=== PATIENT | female | born 2005 | race Caucasian/White ===

== ENCOUNTER 2024-01-01 10:30 | Outpatient (OUT) | payer OTHER, SELFPAY ==
[2024-01-01 11:05] LABS: Basophils Absolute Auto 0.1 10^3/uL (0.0-0.1); Basophils Percent Auto 0.8 % (0.2-2.0); Eosinophils Absolute Auto 0.2 10^3/uL (0.0-0.7); Eosinophils Percent Auto 3.2 % (0.9-7.0); Hematocrit 40.9 % (36.0-48.0); Hemoglobin 13.6 g/dL (12.0-16.0); Immature Granulocytes Abs Auto 0.01 10^3/uL (0.00-0.03); Immature Granulocytes Pct Auto 0.2 % (0.0-0.5); Lymphocytes Absolute Auto 2.7 10^3/uL (1.2-3.8); Lymphocytes Percent Auto 43.6 % (20.5-60.0); Mean Corpuscular HGB Conc 33.3 g/dL (29.9-35.2); Mean Corpuscular Hemoglobin 28.6 pg (26.7-34.0); Mean Corpuscular Volume 86.1 fL (81.0-99.0); Monocytes Absolute Auto 0.7 10^3/uL (0.3-0.8); Monocytes Percent Auto 11.2 % (1.7-12.0); Neutrophils Absolute Auto 2.6 10^3/uL (1.4-6.5); Platelet Count 200 10^3/uL (150-450); Red Blood Count 4.75 10^6/uL (4.20-5.40); Red Cell Distribution Width 12.8 % (11.0-15.0); White Blood Count 6.3 10^3/uL (4.0-11.0)
[2024-01-01 11:22] LABS: Bilirubin Urine NEGATIVE (NEGATIVE); Blood Urine NEGATIVE (NEGATIVE); Clarity Urine CLEAR (CLEAR); Color Urine LT. YELLOW (YELLOW); Glucose Urine UA NEGATIVE (NEGATIVE); Ketones Urine NEGATIVE (NEGATIVE); Leukocyte Esterase Urine NEGATIVE (NEGATIVE); Nitrite Urine NEGATIVE (NEGATIVE); Protein Urine NEGATIVE (NEG/TRACE); Specific Gravity Urine 1.015 (1.005-1.025); Urobilinogen Urine 0.2 EU/dL (0.2-1.0)
[2024-01-01 12:09] LABS: Amphetamine Screen Urine NEGATIVE (NEGATIVE); Barbiturates Screen Urine NEGATIVE (NEGATIVE); Benzodiazepines Screen Urine NEGATIVE (NEGATIVE); Buprenorphine Screen Urine NEGATIVE (NEGATIVE); Cannabinoid Screen Urine NEGATIVE (NEGATIVE); Cocaine Screen Urine NEGATIVE (NEGATIVE); Methadone Screen Urine NEGATIVE (NEGATIVE); Methamphetamines Screen Urine NEGATIVE (NEGATIVE); Opiate Screen Urine NEGATIVE (NEGATIVE); Oxycodone Screen Urine NEGATIVE (NEGATIVE); Phencyclidine Screen Urine NEGATIVE (NEGATIVE); Tricyclic Antidepressant Urine NEGATIVE (NEGATIVE)
== END 2024-01-01 10:31 | disposition home or self-care (01) ==
PROVIDERS: PCP Family Medicine; Visit Provider Family Medicine
DX: Z00.00 Encounter for general adult medical examination without abnormal findings (principal)
CPT/HCPCS: 36415; 80307; 81003; 85025; 86762

== ENCOUNTER 2025-02-01 10:44 | Outpatient (OUT) | payer MEDICAID, SELFPAY ==
[2025-02-01 11:41] LABS: Hematocrit 40.9 % (36.0-48.0); Hemoglobin 14.4 g/dL (12.0-16.0); Immature Granulocytes Abs Auto 0.05 10^3/uL (0.00-0.03); Immature Granulocytes Pct Auto 0.5 % (0.0-0.5); Lymphocytes Absolute Auto 1.9 10^3/uL (1.2-3.8); Mean Corpuscular HGB Conc 35.2 g/dL (29.9-35.2); Mean Corpuscular Hemoglobin 30.0 pg (26.7-34.0); Mean Corpuscular Volume 85.2 fL (81.0-99.0); Platelet Count 194 10^3/uL (150-450); Red Blood Count 4.80 10^6/uL (4.20-5.40); White Blood Count 10.4 10^3/uL (4.0-11.0)
[2025-02-01 11:55] LABS: Cannabinoid Screen Urine NEGATIVE (NEGATIVE); Methamphetamines Screen Urine NEGATIVE (NEGATIVE); Tricyclic Antidepressant Urine NEGATIVE (NEGATIVE)
[2025-02-02 08:08] LABS: Rubella Antibodies, IgG 1.17 index (Immune >0.99)
[2025-02-02 12:09] LABS: Rapid Plasma Reagin, Quant Non Reactive titer (NonRea<1:1)
== END 2025-02-01 10:45 | disposition home or self-care (01) ==
PROVIDERS: PCP Family Medicine; Visit Provider Obstetrics & Gynecology
DX: Z34.01 Encounter for supervision of normal first pregnancy, first trimester (principal); N92.6 Irregular menstruation, unspecified
CPT/HCPCS: 36415; 80307; 83036; 85025; 86592; 86762; 86803; 86850; 86900; 86901; 87086; 87340; 87389

== ENCOUNTER 2025-04-14 19:16 | Outpatient (REF) | payer MEDICAID, SELFPAY ==
--- OUTSIDE RECORDS SUMMARY | 2022-08-02 05:00 | XMS_ITS | Continuity of Care Document ---
Author Organization [facility] Address [address] [place] [address] Phone Care Team Providers Care Carriage Operator Name Role Phone Seven Harrison DDS Unavailable Unavail able Allergies, Adverse Reactions, Alerts Substance Reaction Status Criticality No Known Allergies Active No Inform ation Procedures Procedure Date Panoramic Film Limited Oral Eval Nutrit Couns For Control Of [place] Dis Aug Advance Directives Directive Yes / No Effective Date File Name No Information Encounters Encounter Description Practice Location Reason(s) For Visit Diagnoses Date Provider Providers Copied on Encounter [facility], [address] [place], [place], [id number], [place] tel:[phone] Dental Clinic consult (chief complaint) Encounter for screening for dental disorders Hunter Amezcua. [address] [place], [place], [id number], [place]. tel:[phone] Family History Family Member Type Diagnosis Age At Onset No Information Payers Payer name Insurance type Covered alliance party ID Authorteda anthony(s) D Aetna 17 [id number] Social History Type Description Quantity Date Captured Comments Alcohol Use Details Unknown Caffeine Use Details Unknown Tobacco Use Status Current non-smoker Smoking Status Never smoker Non-Smoking Tobacco Use Details : No Details Available : No Details Available Sex Female Sexual Orientation Straight or heterosexual Gender Identity Female Vital Signs Date / Time: Height Weight BMI Pulse Rate Blood Pressure Temperature Respiratory Rate Body Surface Area Head Circumference Head Circ. Percentile Wt./Robbi. Percentile BMI percentile Pulse Ox Inhaled Ox 9:22 AM 82 /min 120/81 mm[Hg] 96.90 F Chief Complaint And Reason For Visit From encounter dated '08/02/2022 09:00'. consult (chief complaint) Reason For Referral [...]
--- OUTSIDE RECORDS SUMMARY | 2025-04-14 13:00 | XMS_ITS | Encounter Summary ---
Author Organization [facility] Address [address] [facility] [place] [address] Care Team Providers Care Cardiovascular Specialist Name Role Phone Unavailable Primary Care Provider Unavailabl e Encounter Details Date Type Department Care Team (Latest Contact Info) Description 04/14/2025 1:00 PM EDT Ancillary Procedure [facility] [address] [place] [address] Low-lying placenta ([facility]) Social History Tobacco Use Types Packs/Day Years Used Date Smoking Tobacco: Never Assessed Estimated Date of Delivery Comme nts Yes 08/05/2025 Based on last me nstrual period of 10/29/2024 Sex and Gender Information Value Date Recorded Sex Assigned at Not on file Legal Sex Female 6:37 PM EDT Gender Identity Not on file Sexual Orientation Not on file documented as of this encounter Plan of Treatment Upcoming Encounters Date Type Department Care Team (Late st Contact Info) Description 05/12/2025 1:30 PM EST Routine [facility] [address] [place] [address] Vanesa Page PA [address] [place], [id number] Pending Results Name Type Priority Associated Diagnoses Date /Time US OB limited 1+ fetuses Imaging Routine Low-lying placenta ([facility]HS-HCC) 04/14/2025 1:29 PM EDT documented as of this encounter Visit Diagnoses Diagnosis Low-lying placenta ([facility]HCC) Hemorrhage from placenta previa, unspecified as to episode of care documented in this encounter
--- OUTSIDE RECORDS SUMMARY | 2025-04-14 13:40 | XMS_ITS | Encounter Summary ---
Author Organization [facility] Address [address] [place] [address] Care Team Providers Care Tar Distillation Supervisor Name Role Phone Unavailable Primary Care Provider Unavailabl e Reason for Visit * Reason Comments Routine Visit Encounter Details Date Type Department Care Team (Late st Contact Info) Description 04/14/2025 1:40 PM EDT Routine [facility] [place] [facility] [address] [id number] Ashok Paredes DO [address] [place] [address] Second trimester ([facility]); 23 weeks gestation of ([facility]); Diabetes mellitus screening Social History Tobacco Use Types Packs/Day Years Used Date Smoking Tobacco: Never Assessed Estimated Date of Delivery Comme nts Yes 08/05/2025 Based on last me nstrual period of 10/29/2024 Sex and Gender Information Value Date Recorded Sex Assigned at Not on file Legal Sex Female 6:37 PM EDT Gender Identity Not on file Sexual Orientation Not on file documented as of this encounter Last Filed Vital Signs Vital Sign Reading Time Taken Comments Blood Pressure 122/70 04/14/2025 1:39 PM EDT Pulse - - Temperature - - Respiratory Rate - - Oxygen Saturation - - Inhaled Oxygen Concentration - - Weight 79.4 kg (175 lb 1.9 oz) 04/14/2025 1:39 P M EDT Height - - Body Mass Index - - documented in this encounter Progress Notes * Aileen Hawkins LPN - 04/14/2025 1:40 PM EDT Reason for Appointment: Patient ID: Justin Uribe is a 20 y.o. female who presents for Routine Visit Patient presents today for Annual Exam., STD Check., and Return OB appointment. MEDICATIONS Current Outpatient Medications Medication Instructions Yeeuioxh-Fvx-La-[id number] ( 1 + IRON PO) 1 tablet, Daily ALLERGIES Allergies[1] PROBLEMS Active Ambulatory Problems Diagnosis Date Noted No Active Ambulatory Problems Resolved Ambulatory Problems Diagnosis Date Noted No Resolved Ambulatory Problems No Additional Past Medical History HISTORY PAST MEDICAL HISTORY SOCIAL HISTORY Medical History[2] Social History Tobacco Use Smoking status: Not on file Smokeless tobacco: Not on file Substance Use Topics Alcohol use: Not on file Drug use: Not on file FAMILY HISTORY Family History[3] SURGICAL HISTORY Surgical History[4] REVIEW OF SYSTEMS Review of Systems: Review of Systems Constitutional: Negative. HENT: Negative. Eyes: Negative. Respiratory: Negative. Cardiovascular: Negative. Gastrointestinal: Negative. Genitourinary: Negative. Musculoskeletal: Negative. Skin: Negative. Neurological: Negative. All other systems reviewed and are negative. Hematological: Negative. Endocrine: Negative. Allergic/Immunologic: Negative. OBJECTIVE Objective: Physical Exam Constitutional: Appearance: Normal appearance. She is well-developed. Genitourinary: Vulva normal. Breasts: Breasts are soft. Right: Normal. Left: Normal. Cardiovascular: Rate and Rhythm: Normal rate and regular rhythm. Pulmonary: Effort: Pulmonary effort is normal. Breath sounds: Normal breath sounds. Abdominal: General: Bowel sounds are normal. There is no distension. Palpations: Abdomen is soft. Tenderness: There is no abdominal tenderness. There is no guarding or rebound. Musculoskeletal: General: No swelling. Normal range of motion. Right lower leg: No edema. Left lower leg: No edema. Neurological: Mental Status: She is alert and oriented to person, place, and time. Skin: General: Skin is warm and dry. Psychiatric: Mood and Affect: Mood normal. Behavior: Behavior normal. Vitals and nursing note reviewed. Exam conducted with a sole leveler present. Vitals: There is no height or weight on file to calculate BMI. BP: 122/70 Patient's last menstrual period was 10/29/2024. ASSESSMENT & PLAN ICD-10-CM 1. Second trimester ([facility]) Z34.92 SURESWAB(R) ADVANCED VAGINITIS PLUS, TMA CHLAMYDIA TRACHOMATIS (GENITO/STI) Neisseria gonorrhea DNA probe, direct Pap Smear CBC and differential 2. 23 weeks gestation of ([facility]) Z3A.23 POCT urinalysis dipstick manually resulted 3. Diabetes mellitus screening Z13.1 CBC Glucose tolerance, 1 hour CBC Glucose tolerance, 1 hour Return OB/Annual Exam: Patient presents today for an annual exam/routine obstetrics appointment. Patient is currently 23w6d . Patient is doing well and states she has no complaints. Pap/cultures was obtained without difficulty and patient was given glucola order to have obtained. Orders Placed This Encounter Procedures CHLAMYDIA TRACHOMATIS (GENITO/STI) Neisseria gonorrhea DNA probe, direct CBC Glucose tolerance, 1 hour CBC and differential POCT urinalysis dipstick manually resulted Follow Up: Patient is to return to our office in 4 weeks for routine OB appointment Documented by Aileen Hawkins LPN on behalf of: Ashok Paredes DO [1] No Known Allergies [2] No past medical history on file. [3] No family history on file. [4] History reviewed. No pertinent surgical history. documented in this encounter Plan of Treatment Upcoming Encounters Date Type Department Care Team (Late st Contact Info) Description 05/12/2025 1:30 PM EST Routine [facility] [address] [place] [address] Vanesa Page PA [address] [place] [address] Scheduled Orders Name Type Priority Associated Diagnoses Order Schedule SURESWAB(R) ADVANCED VAGINITIS PLUS, TMA Pathology and Cytology Routine Second trimester ([facility]) Ordered: 04/14/2025 CHLAMYDIA TRACHOMATIS (GENITO/STI) Lab Routine Second trimester ([facility]) Ordered: 04/14/2025 Neisseria gonorrhea DNA probe, direct Lab Routine Second trimester ([facility]) Ordered: 04/14/2025 Pap Smear Pathology and Cytology Routine Second trimester ([facility]) Ordered: 04/14/2025 CBC Lab Routine Diabetes mellitus screening Expected: 04/14/2025 (Approximate), Expires: 04/14/2026 Glucose tolerance, 1 hour Lab Routine Diabetes mellitus screening Expected: 04/14/2025 (Approximate), Expires: 04/14/2026 CBC and differential Lab Routine Second trimester ([facility]) Ordered: 04/14/2025 documented as of this encounter Procedures Procedure Name Priority Date/Time Associated Diagnosis Comments POCT URINALYSIS DIPSTICK Routine 04/14/2025 1:53 PM EDT 23 weeks gestation of ([facility]) documented in this encounter Results * (ABNORMAL) POCT urinalysis dipstick manually resulted (04/14/2025 1:53 PM EDT) Color, UA Yellow Clarity, UA Clear Glucose, UA Negative Negative - 2000(110) ++++ mg/dL Bilirubin, UA Negative Negative - 4(70) +++ mg/dL Ketones, UA Negative Negative - 160(16) ++++ mg/dL Spec Grav, UA 1.015 1 - 1.03 Blood, UA Negative Negative - 50 Conrado/mcL pH, UA 6.5 5 - 9 Protein, UA Negative Negative - 2000(20) ++++ mg/dL Urobilinogen, UA 2.0 0.2 - 12 mg/dL Leukocytes, UA 3+ Negative - 500+++ Yovanny/mcL Nitrite, UA Negative Negative - Positive Urine 04/14/2025 1:53 PM EDT us Ashok Paredes DO POINT OF CARE TEST ENTER/EDIT OR DERABLES Final Result documented in this encounter Visit Diagnoses Diagnosis Second trimester ([facility]) state, incidental 23 weeks gestation of ([facility]) Diabetes mellitus screening Screening for diabetes mellitus documented in this encounter
--- OUTSIDE RECORDS SUMMARY | 2025-04-14 19:20 | XMS_ITS | Clinical Summary ---
Author Organization [facility] Address [address] [place] [address] Care Team Providers Care Warehouse Shipping Clerk Name Role Phone Unavailable Primary Care Provider Unavailabl e Allergies No known active allergies Medications Ziaqumwy-Eiz-Fw- FA ( 1 + IRON PO) Take 1 tablet by mouth Daily Active Encounters Date Type Department Care Team Description 04/14/2025 1:40 PM EDT Routine [facility] [place] [address] Ashok Paredes DO Second trimester ([facility]); 23 weeks gestation of ([facility]); Diabetes mellitus screening 04/14/2025 1:00 PM EDT Ancillary Procedure BAIRON WRIGHT [facility] [place] [address] Low-lying placenta ([facility]) 04/05/2025 Patient Outreach [place] [id number] [place] [address] Vanesa Shah LPN 04/01/2025 Abstract [facility] [address] [place] [address] Vanesa Shah LPN 03/19/2025 [place] [address] Imani Burnham MA 03/18/2025 10:20 [place] [address] Vanesa Page PA 20 weeks gestation of ([facility]); Second trimester ([facility]) 03/18/2025 9:00 AM EDT [place] [address] Screening, , for anatomic survey ([facility]) 02/18/2025 10:40 AM [place] [address] Ashok Paredes, DO Second trimester ([facility]); 16 weeks gestation of ([facility]); Screening, , for anatomic survey ([facility]) 02/18/2025 [place] [address] Ashok Paredes, 02/08/2025 [place] [address] Ashok Paredes, DO 02/08/2025 [place] [address] Vanesa Page PA 02/01/2025 Clinisync Result Encounter NOMS External Department Unsolicited Ashok Paredes, 01/28/2025 1:00 [place] [address] GA: [id number] 01/28/2025 12:30 PM EDT [place] [address] Missed menses; Positive urine test ([facility]) from Last 3 Months Social History Tobacco Use Types Packs/Day Years Used Date Smoking Tobacco: Never Assessed Estimated Date of Delivery Comme nts Yes 08/05/2025 Based on last me nstrual period of 10/29/2024 Sex and Gender Information Value Date Recorded Sex Assigned at Not on file Legal Sex Female 6:37 PM EDT Gender Identity Not on file Sexual Orientation Not on file Last Filed Vital Signs Vital Sign Reading Time Taken Comments Blood Pressure 122/70 04/14/2025 1:39 PM EDT Pulse - - Temperature - - Respiratory Rate - - Oxygen Saturation - - Inhaled Oxygen Concentration - - Weight 79.4 kg (175 lb 1.9 oz) 04/14/2025 1:39 P M EDT Height - - Body Mass Index - - Plan of Treatment Upcoming Encounters Date Type Department Care Team (Late st Contact Info) Description 05/12/2025 1:30 PM EST Routine [facility] [address] [place] [address] Vanesa Page PA [address] [place] [address] Procedures Procedure Name Priority Date/Time Associated Diagnosis Comments POCT URINALYSIS DIPSTICK Routine 04/14/2025 1:53 PM EDT 23 weeks gestation of ([facility]) POCT URINALYSIS DIPSTICK Routine 03/18/2025 10:17 AM EDT 20 weeks gestation of ([facility]) Second trimester ([facility]) OB 14+ WEEKS ANATOMY SCAN Routine 03/18/2025 10:03 AM EDT Screening, , for anatomic survey ([facility]) POCT URINALYSIS DIPSTICK Routine 02/18/2025 11:21 AM EDT Second trimester ([facility]) 16 weeks gestation of ([facility]) HBSAG SCREEN Routine 02/01/2025 11:28 AM EDT RAPID PLASMA REAGIN, QUANT Routine 02/01/2025 11:28 AM EDT HCV ANTIBODY RFX TO QUANT PCR Routine 02/01/2025 11:28 AM EDT ALL RUBELLA IGG AB Routine 02/01/2025 11 :28 AM EDT HIV AB/P24 AG WITH REFLEX Routine 02/01/2025 11:28 AM EDT ALL TYPE AND SCREEN Routine 02/01/2025 1 1:28 AM EDT MLR HEMOGLOBIN A1C Routine 02/01/2025 11 :28 AM EDT ALL CBC WITH AUTO DIFF Routine 02/01/2025 11:28 AM EDT BOX TEST Routine 02/01/2025 11:28 AM EDT [facility] DRUG SCREEN RAPID (URINE) Routine 02/01/2025 11:04 AM EDT POCT URINALYSIS DIPSTICK Routine 01/28/2025 2:00 PM EDT Missed menses POCT , URINE Routine 01/28/2025 2:00 PM EDT Missed menses US OB TRANSVAGINAL Routine 01/28/2025 12 :51 PM EDT Missed menses Positive urine test ([facility]) from Last 3 Months Results * (ABNORMAL) POCT urinalysis dipstick manually resulted (04/14/2025 1:53 PM EDT) Only the most recent of4 resultswithin the time period is included. Color, UA Yellow Clarity, UA Clear Glucose, UA Negative Negative - 1999(110) ++++ mg/dL Bilirubin, UA Negative Negative - 4(70) +++ mg/dL Ketones, UA Negative Negative - 160(16) ++++ mg/dL Spec Grav, UA 1.015 1 - 1.03 Blood, UA Negative Negative - 50 Conrado/mcL pH, UA 6.5 5 - 9 Protein, UA Negative Negative - 1999(20) ++++ mg/dL Urobilinogen, UA 2.0 0.2 - 12 mg/dL Leukocytes, UA 3+ Negative - 500+++ Yovanny/mcL Nitrite, UA Negative Negative - Positive Urine 04/14/2025 1:53 PM EDT [facility] DO POINT OF CARE TEST ENTER/EDIT OR DERABLES Final Result * US OB 14+ weeks anatomy scan (03/18/2025 10:03 AM EDT) Anatomical Region Laterality Modality Body Ultrasound 03/18/2025 12:1 6 PM EDT Impressions 03/18/2025 1:11 PM EDT Single, live intrauterine , current sonographic age of 20 weeks and 2 days, with an estimated date of delivery of August 03, 2025 * Estimated Weight (g) by Percentile is based upon an accurate estimated age based on last menstrual period. TRANSCRIBED BY: ELECTRONICALLY SIGNED BY: Damon Brody MD Narrative 03/18/2025 1:11 PM EDT FINDINGS: A single, live intrauterine is present with normal cardiac rate of 157 beats per minute. Normal activity Morphology is grossly normal. The cervix is long and closed,4.0 cm. The placenta anterior, low lying at least 2.0 cm from the closed internal cervical os. The current sonographic age is 20weeks and 2 days, based on the following measurements: BPD 4.7cm (20 weeks,1 days) Head Circumference 17.5cm ( 20 weeks,0 days) Abdominal Circumference 14.8cm (20 weeks,1 days) Femur Length 3.4cm (20 weeks,4 days) Presentation Cephalic Placenta Anterior low lying placenta Weight (g) by Percentile 61.1 % * These measurements result in an estimated date of delivery of August 03, 2025. The current estimated weight is 343 grams ( pound, 12 ounces). Procedure Note Damon Brody MD - 03/18/2025 FINDINGS: A single, live intrauterine is present with normal cardiacrate of 157 beats per minute. Normal activity Morphology isgrossly normal. The cervix is long and closed,4.0 cm. The placentaanterior, low lying at least 2.0 cm from the closed internal cervical os.The current sonographic age is 20weeks and 2 days, based on the followingmeasurements: BPD 4.7cm (20 weeks,1 days) Head Circumference 17.5cm ( 20 weeks,0 days) Abdominal Circumference 14.8cm (20 weeks,1 days) Femur Length 3.4cm (20 weeks,4 days) Presentation Cephalic Placenta Anterior low lyingplacenta Weight (g) by Percentile 61.1 % * These measurements result in an estimated date of delivery of August. The current estimated weight is 343 grams ( pound, 12ounces). IMPRESSION: Single, live intrauterine , current sonographic age of 20 weeksand 2 days, with an estimated date of delivery of August 03, 2025 * Estimated Weight (g) by Percentile is based upon an accurateestimated age based on last menstrual period. TRANSCRIBED BY: ELECTRONICALLY SIGNED BY: Damon Brody MD us Ashok Lena DO IMG OB US PROCEDURES Final Resul t * BOX TEST (02/01/2025 11:28 AM EDT) BOX TEST SENT OUT YES [facility] BOX1 [facility] BOX2 02/01/25 [facility] 02/01/2025 11:2 8 AM EDT 02/01/2025 11:35 AM EDT Narrative DEBORAH - 02/01/2025 11:44 AM EDT us Ashok Lena DO LAB BLOOD ORDERABLES Final Resul t [facility] * HBSAG SCREEN (02/01/2025 11:28 AM EDT) HBSAG SCREEN Negative Negative [facility] Comment: Performed at: - [address] [id number] Distillery Laborer: James Ireland PhD, Phone: [phone] 02/01/2025 11:2 8 AM EDT 02/01/2025 11:35 AM EDT Narrative CLINISYID - 02/02/2025 12:09 PM EDT Ashok Lena DO LAB BLOOD ORDERABLES Final Resul t Performing Organization Address [facility] Co de Phone Number [facility] * RAPID PLASMA REAGIN, QUANT (02/01/2025 11:28 AM EDT) RAPID PLASMA REAGIN, QUANT Non Reactive NonRea<1: 1 titer [facility] Comment: Please Note: This test does not meet current guidelines for screening and diagnosis of syphilis. This test is intended for following treatment response in patients being treated for syphilis infection. To screen for syphilis infection, a reflex cascade that includes both RPR and a treponema-specific assay should be utilized, such as Treponema pallidum (Syphilis) Screening [place] (132690) or Rapid Plasma Reagin (RPR) Test With Reflex to Quantitative RPR and Confirmatory Treponema pallidum Antibodies (384454). Performed at: [facility] [address] [id number] Distillery Laborer: James Ireland PhD, Phone: [phone] 02/01/2025 11:2 8 AM EDT 02/01/2025 11:35 AM EDT Narrative [facility] - 02/02/2025 12:09 PM EDT Ashok Lena DO LAB BLOOD ORDERABLES Final Resul t Performing Organization Address City/[facility] Co de Phone Number [facility] * HIV AB/P24 AG WITH REFLEX (02/01/2025 11:28 AM EDT) HIV AB/P24 AG SCREEN Non Reactive Non Reactive [facility] Comment: HIV-1/HIV-2 antibodies and HIV-1 p24 antigen were NOT detected. There is no laboratory evidence of HIV infection. HIV Negative Performed at: [address] [id number] Distillery Laborer: James Ireland PhD, Phone: [phone] 02/01/2025 11:2 8 AM EDT 02/01/2025 11:35 AM EDT Narrative [facility]NC - 02/02/2025 5:08 AM EDT Ashok Lena DO LAB BLOOD ORDERABLES Final Resul t Performing Organization Address [facility] Co de Phone Number [facility] * HCV ANTIBODY RFX TO QUANT PCR (02/01/2025 11:28 AM EDT) [facility] HCV AB Non Reactive Non Reactive [facility] INTERPRETATION: Comment . [facility] Comment: Not infected with HCV unless early or acute infection is suspected (which may be delayed in an immunocompromised individual), or other evidence exists to indicate HCV infection. Performed at: [facility] [address] [id number] Distillery Laborer: James Ireland PhD, Phone: [phone] 02/01/2025 11:2 8 AM EDT 02/01/2025 11:35 AM EDT Narrative CLINISYID - 02/02/2025 8:08 AM EDT [employer]o DO LAB BLOOD ORDERABLES Final Resul t Performing Organization Address [facility] Co de Phone Number [facility] * MLR HEMOGLOBIN A1C (02/01/2025 11:28 AM EDT) [facility] GLYCOHEMOGLOBIN A1C 4.7 4.5 - 6.2 % [facility] Comment: ADA RECOMMENDED LIMIT 4.0 - 6.0 ADA THERAPEUTIC TARGET < 7.0 ACTION SUGGESTED > 7.0 ESTIMATED AVERAGE GLUCOSE 88 mg/dL [facility] 02/01/2025 11:2 8 AM EDT 02/01/2025 11:35 AM EDT Narrative [facility] - 02/01/2025 12:46 PM EDT Ashok Lena DO CLINISYNC Final Result Performing Organization Address City/[facility]/ZIP Co de Phone Number [facility] * ALL TYPE AND SCREEN (02/01/2025 11:28 AM EDT) [facility] BLOOD TYPE AB Positive [facility] ANTIBODY SCREEN NEGATIVE [facility] 02/01/2025 11:2 8 AM EDT 02/01/2025 11:35 AM EDT Narrative [facility] - 02/01/2025 1:54 PM EDT [facility] , Ashok Lena DO CLINISYNC Final Result [facility] * ALL RUBELLA IGG AB (02/01/2025 11:28 AM EDT) Pathologist [facility] RUBELLA ANTIBODIES, IGG 1.17 Immune >0.99 index [facility] Comment: Non-immune <0.90 Equivocal 0.90 - 0.99 Immune >0.99 Performed at: [facility] [address] [id number] Distillery Laborer: James Ireland PhD, Phone: [phone] 02/01/2025 11:2 8 AM EDT 02/01/2025 11:35 AM EDT Narrative CL[facility]YNC - 02/02/2025 8:08 AM EDT Ashok Lena DO CLINISYNC Final Result Performing Organization Address [facility] Co de Phone Number [facility] * (ABNORMAL) ALL CBC WITH AUTO DIFF (02/01/2025 11:28 AM EDT) [facility] WBC 10.4 4.0 - 11.0 10 3/uL [facility] RBC 4.80 4.20 - 5.40 10 6/uL [facility] HGB 14.4 12.0 - 16.0 g/dL [facility] TBH HCT 40.9 36.0 - 48.0 % [facility] MCV 85.2 81.0 - 99.0 fL [facility] MCH 30.0 26.7 - 34.0 pg TBH [facility]H MCHC 35.2 29.9 - 35.2 g/dL [facility] TBH RDW 12.7 11.0 - 15.0 % [facility] TBH PLT 194 150 - 450 10 3/uL [facility] TBH MPV 11.2 9.5 - 13.5 fL [facility] NEUTROPHILS PERCENT AUTO 73.6 43.0 - 75.0 % [facility] LYMPHOCYTES PERCENT AUTO 18.2(L) 20.5 - 60.0 % [facility] MONOCYTES PERCENT AUTO 6.0 1.7 - 12.0 % [facility]H EO % 1.3 0.9 - 7.0 % [facility] BASOPHILS PERCENT AUTO 0.4 0.2 - 2.0 % [facility] IMMATURE GRANULOCYTES PCT AUTO 0.5 0.0 - 0.5 % [facility] NEUTROPHILS ABSOLUTE AUTO 7.6(H) 1.4 - 6.5 10 3/uL [facility] LYMPHOCYTES ABSOLUTE AUTO 1.9 1.2 - 3.8 10 3/uL [facility] MONOCYTES ABSOLUTE AUTO 0.6 0.3 - 0.8 10 3/uL TB[facility] TBH EO # 0.1 0.0 - 0.7 10 3/uL [facility] BASOPHILS ABSOLUTE AUTO 0.0 0.0 - 0.1 10 3/uL [facility] IMMATURE GRANULOCYTES ABS AUTO 0.05(H) 0.00 - 0.03 10 3/uL [facility] 02/01/2025 11:2 8 AM EDT 02/01/2025 11:35 AM EDT Narrative [facility]YNC - 02/01/2025 11:45 AM EDT us Ashok Lena DO CLINISYNC Final Result [facility] * TB DRUG SCREEN RAPID (URINE) (02/01/2025 11:04 AM EDT) Pathologist [facility] CANNABINOID SCREEN URINE NEGATIVE NEGATIVE [facility]H PHENCYCLIDINE SCREEN URINE NEGATIVE NEGATIVE [facility] COCAINE SCREEN URINE NEGATIVE NEGATIVE [facility] METHAMPHETAMINES SCREEN URINE NEGATIVE NEGATIVE TBH OPIATE SCREEN URINE NEGATIVE NEGATIVE TBH AMPHETAMINE SCREEN URINE NEGATIVE NEGATIVE TBH BENZODIAZEPINES SCREEN URINE NEGATIVE NEGATIVE TBH TRICYCLIC ANTIDEPRESSANT URINE NEGATIVE NEGATIVE TBH METHADONE SCREEN URINE NEGATIVE NEGATIVE TBH BARBITURATES SCREEN URINE NEGATIVE NEGATIVE TBH OXYCODONE SCREEN URINE NEGATIVE NEGATIVE TBH BUPRENORPHINE SCREEN URINE NEGATIVE NEGATIVE [facility] Comment: DRUG CLASS TEST SYSTEM CUT-OFF CONCENTRATIONS ARE FOLLOWS: AMP (Amphetamine): 500 ng/mL BAR (Barbiturates): 200 ng/mL BZO (Benzodiazepines): 150 ng/mL BUP (Buprenorphine): 10 ng/mL LINDA (Cocaine): 150 ng/mL mAMP (Methamphetamine): 500 ng/mL MTD (Methadone): 200 ng/mL OPI (Opiates): 100 ng/mL OXY (Oxycodone): 100 ng/mL PCP (Phencyclidine): 25 ng/mL THC (Cannabinoids): 50 ng/mL TCA (Trycyclic Antidepressants): 300 ng/mL 02/01/2025 11:0 4 AM EDT 02/01/2025 11:35 AM EDT Narrative [facility] - 02/01/2025 11:55 AM EDT us Ashok Lena DO CLINISYNC Final Result [facility] * (ABNORMAL) POCT , urine manually resulted (01/28/2025 2:00 PM EDT) Preg Test, Ur Positive Negative Urine 01/28/2025 2:00 PM EDT us Ashok Lena DO POINT OF CARE TEST ENTER/EDIT OR DERABLES Final Result * US OB transvaginal (01/28/2025 12:51 PM EDT) Anatomical Region Laterality Modality Body Ultrasound 01/29/2025 8:27 AM EDT Narrative 01/29/2025 8:27 AM EDT EXAM: US OB TRANSVAGINAL HISTORY: Dating. COMPARISON: None available. TECHNIQUE: Two-dimensional transvaginal grayscale ultrasound imaging of the pelvis was performed. Color Doppler evaluation of the ovaries was also performed. FINDINGS: The uterus demonstrates a normal homogeneous echotexture. The cervix measures 4.6 cm in length and the cervical os is closed. The right ovary measures 2.8 x 1.8 x 2.5 cm and demonstrates a normal echotexture. There is normal color Doppler flow. The left ovary measures 2.6 x 1.1 x 1.6 cm and demonstrates a normal echotexture. There is normal color Doppler flow. No fluid is present within the cul-de-sac. There is a single, live intrauterine gestation identified with a heart rate of 161 beats per minute and a crown-rump length measurement of 5.8 cm, correlating to a gestational age of 12 weeks 5 days (+/- 8 days). There is no subchorionic hemorrhage visualized. A yolk sac is not visualized. IMPRESSION: 1. Single, live intrauterine gestation 13 weeks, 0 days by LMP. Today's ultrasound measurements correlate with a gestational age of 12 weeks 5 days (+/- 8 days). RHIANNON by today's ultrasound is 08/07/2025. 2. Normal color Doppler evaluation of the bilateral ovaries. Interpreted by: Electronically signed by KVNG MENDEZ II, MD, PHD at 29-Jan-2025 08:25:42 AM [facility] Procedure Note Kvng Mendez MD - 01/29/2025 EXAM: US OB TRANSVAGINAL HISTORY: Dating. COMPARISON: None available. TECHNIQUE: Two-dimensional transvaginal grayscale ultrasound imaging ofthe pelvis was performed. Color Doppler evaluation of the ovaries was alsoperformed. FINDINGS: The uterus demonstrates a normal homogeneous echotexture. The cervixmeasures 4.6 cm in length and the cervical os is closed. The right ovary measures 2.8 x 1.8 x 2.5 cm and demonstrates a normalechotexture. There is normal color Doppler flow. The left ovary measures 2.6 x 1.1 x 1.6 cm and demonstrates a normalechotexture. There is normal color Doppler flow. No fluid is present within the cul-de-sac. There is a single, live intrauterine gestation identified with a fetalheart rate of 161 beats per minute and a crown-rump length measurement of5.8 cm, correlating to a gestational age of 12 weeks 5 days (+/- 8 days).There is no subchorionic hemorrhage visualized. A yolk sac is notvisualized. IMPRESSION: 1. Single, live intrauterine gestation 13 weeks, 0 days by LMP. Today'sultrasound measurements correlate with a gestational age of 12 weeks 5days (+/- 8 days). RHIANNON by today's ultrasound is 08/07/2025. 2. Normal color Doppler evaluation of the bilateral ovaries. Interpreted by: Electronically signed by KVNG MENDEZ II, MD, PHD [id number] 08:25:42 AM [facility] us Ashok Paredes DO IMG OB US PROCEDURES Final Resul t from Last 3 Months Insurance MEDICAID [place]
--- OUTSIDE RECORDS SUMMARY | 2025-04-14 19:20 | XMS_ITS | Patient Health Record ---
Author Organization [facility] Serv[facility] es Address [address] [place] [address] Support Name Relationship Address Phone JORDON HOOK Emergency Contact [address] [place] [phone] LAUREL CHILD Guarantor Unknown [phone] Allergies No Known Allergies Reason For Referral No Information Medications Medication SIG (Take, Route, Frequency, Duration) Notes Start Date End Date Status Pippa 0.25-35 MG-MCG Tablet 1 tablet Orally Once a day Active Social History Tobacco Use: Social History Observation Description Date Details (start date - stop date) Never Smoker NA - NA Social History General Social Info Question Answer Notes Transition of Care: ER/UC/hospital since last office v isit? No Specialist seen since last office visit? No Substance abuse/mental healt h issues of patient/family Patient - Denies Ability to understand healthcare/treatment Patient: Good Tobacco Screen: Are you a: never smoker Social/Support Concerns: Patient: Yes Alcohol Screening: Did you have a drink containing alcohol in the past year? No Points 0 Interpretation Negative Communication Barrier: Language Barrier?: Yes Plan Of Treatment No Information Insurance Providers Payer Name Payer Address Payer Phone Subscriber Number Group Number Insured Name Patient Relationship to Insured Coverage Start Date Coverage End Date [employer] [address] [address] [place], [place] [address] [id number] LAUREL CHILD Self - patient is the insured 3 3 Medications Administered Medication Instructions Date of Administration Dosage Notes TB 04/24/2023 0.1 mL TB 05/01/2023 0.1 mL
--- OUTSIDE RECORDS SUMMARY | 2025-04-14 19:20 | XMS_ITS ---
Author Organization [facility] Healthcare Address [address] [place] [address] Care Team Providers Care Computerized Mill Mill Recorder Name Role Phone Unavailable Primary Care Provider Unavailabl e Comprehensive Maternal Care ([facility]) Status:Closed (Closed) Start date:03/29/2025 Enrollment date:04/05/2025 Enrollment reason:Identified by Health Plan End date:04/05/2025 Close reason:Unable to reach patient Continued Care and Services Coordination
--- OUTSIDE RECORDS SUMMARY | 2025-04-14 19:20 | XMS_ITS | Encounter Summary ---
Author Organization [facility] Address [address] [facility] [place] [address] Care Team Providers Care Hand Glove Cleaner Name Role Phone Unavailable Primary Care Provider Unavailabl e Encounter Details Date Type Department Care Team (Late Contact Info) Description 02/08/2025 Abstract [facility] [address] [place] [address] [place] [address] Vanesa Page PA [address] [facility] [address] [place], [facility]11 Social History Tobacco Use Types Packs/Day Years [...] 1:30 PM EST Routine [facility] WRIGHT [address] [place] [id number] Vanesa Page PA [address] [facility] [address] [place], [facility]11 documented as of this encounter Visit Diagnoses Not on filedocumented in this encounter
--- OUTSIDE RECORDS SUMMARY | 2025-04-14 19:20 | XMS_ITS | Encounter Summary ---
Author Organization [facility] Address [address] [place] [address] Care Team Providers Care Fire Support Specialist Name Role Phone Unavailable Primary Care Provider Unavailabl e Encounter Details Date Type Department Care Team (Late st Contact Info) Description 04/01/2025 Abstract [facility] [address] [place] [address] Vanesa Shah LPN [address] [place] [address] Social History Tobacco Use Types Packs/Day Years [...] Info) Description 05/12/2025 1:30 PM EST Routine [facility]avera [facility]BG[facility] [address] [facility] [place] [phone] Vanesa Page PA [address] [facility] [address] [place] [id number] documented as of this encounter Visit Diagnoses Not on filedocumented in this encounter
--- OUTSIDE RECORDS SUMMARY | 2025-04-14 19:20 | XMS_ITS ---
Author Organization [facility] Source Produ ction (ClinicalSummary Clone) Address Unknown Care Team Providers Care Food Service Utility Worker Name Role Phone Unavailable Primary Care Physician Unavailab le Results * [UNITY] ANEUPLOIDY NIPT Performed by: [employer] Component Value Range Date Fraction 7.4% 02/08/2025 04 :40 am UTC Rh(D) NIPT RhD DETECTED 02/08/2025 04:4 0 am UTC Sex Chromosome Aneuploidy NOT DETECTED 04:40 am UTC Monosomy X LOW RISK <1 in 10,000 2024 04:40 am UTC Trisomy 13 LOW RISK <1 in 10,000 2024 04:40 am UTC Trisomy 18 LOW RISK <1 in 10,000 2024 04:40 am UTC Trisomy 21 LOW RISK <1 in 10,000 2024 04:40 am UTC Sex FEMALE 02/08/2025 04:4 0 am UTC Gestation HUMPHRIES 02/09/20 25 04:40 am UTC For detailed report, see PDF See PDF 02/08/2025 04:40 am UTC 02/08/2025 04:4 0 am UTC Social History Observation Value Start Date End Date
--- OUTSIDE RECORDS SUMMARY | 2025-04-14 19:20 | XMS_ITS | Encounter Summary ---
Author Organization [facility] Address [address] [place] [address] Care Team Providers Care Television Engineer Name Role Phone Unavailable Primary Care Provider Unavailabl e Encounter Details Date Type Department Care Team (Late st Contact Info) Description 04/05/2025 Patient Outreach [facility] [address] [place] [address] Vanesa Shah LPN [address] [place] [address] Social History Tobacco Use Types Packs/Day Years Used Date Smoking Tobacco: Never Assessed Estimated Date of Delivery Comme nts Yes 08/05/2025 Based on last me nstrual period of 10/29/2024 Sex and Gender Information Value Date Recorded Sex Assigned at Not on file Legal Sex Female 6:37 PM EDT Gender Identity Not on file Sexual Orientation Not on file documented as of this encounter Progress Notes * Vanesa Shah LPN - 04/05/2025 10:10 AM EDT Initial outreach. Call to pt X2, LVM. documented in this encounter Plan of Treatment Upcoming Encounters Date Type Department Care Team (Late st Contact Info) Description 05/12/2025 1:30 PM EST Routine [facility] [address] [place] [phone] Vanesa Page PA [address] [place] [address] documented as of this encounter Visit Diagnoses Not on filedocumented in this encounter
[2025-04-21 15:08] LABS: Age Gdln ACOG Testing Note (.); IGP, rfx Aptima HPV ASCU Note (.)
== END 2025-04-14 19:17 | disposition home or self-care (01) ==
LOC: LAB 19:16
PROVIDERS: PCP Family Medicine; Visit Provider Obstetrics & Gynecology
DX: Z34.92 Encounter for supervision of normal pregnancy, unspecified, second trimester (principal)
CPT/HCPCS: 88175

== ENCOUNTER 2025-05-06 08:24 | Outpatient (OUT) | payer MEDICAID, SELFPAY ==
--- OUTSIDE RECORDS SUMMARY | 2022-08-02 04:00 | XMS_ITS | Continuity of Care Document ---
Author Organization [facility] Address [address] [place] [address] Phone Care Team Providers Care Nuclear Criticality Safety Engineer Name Role Phone Seven Harrison DDS Unavailable Unavail able Allergies, Adverse Reactions, Alerts Substance Reaction Status Criticality No Known Allergies Active No Inform ation Procedures Procedure Date Panoramic Film Limited Oral Eval Nutrit Couns For Control Of [place] Dis Aug Advance Directives Directive Yes / No Effective Date File Name No Information Encounters Encounter Description Practice Location Reason(s) For Visit Diagnoses Date Provider Providers Copied on Encounter [facility], [address] [place], [place], [id number], [place] tel:[phone] Dental Clinic consult (chief complaint) Encounter for screening for dental disorders [facility]. [address] [place], [place], [id number], [place]. tel:[phone] Family History Family Member Type Diagnosis Age At Onset No Information Payers Payer name Insurance type Covered republican ID Authoriza anthony(s) D Aetna 17 [id number] Social History Type Description Quantity Date Captured Comments Alcohol Use Details Unknown Caffeine Use Details Unknown Tobacco Use Status Current non-smoker Smoking Status Never smoker Non-Smoking Tobacco Use Details : No Details Available : No Details Available [id number] SexFemaleSexual OrientationStraight or heterosexualGender [id number] Vital Signs Date / Time: Height Weight BMI Pulse Rate Blood Pressure Temperature Respiratory Rate Body Surface Area Head Circumference Head Circ. Percentile Wt./Robbi. Percentile BMI percentile Pulse Ox Inhaled Ox 9:22 AM 82 /min 120/81 mm[Hg] 96.90 F Chief Complaint And Reason For Visit From encounter dated 08/02/2022 09:00'. consult (chief complaint) Reason For Referral Reason For Referral No Information Plan Of Treatment Date Type Action Status Goal RLP. Due on due Goal Tdap Vaccine. Due on 2022 due Goal Tdap. Due on due Goal PRAPARE ASSESSMENT. Due on due Goal Depression screening. Due on due Goal Influenza vaccine. Due on due Goal Hep A. Due on du e History Of Present Illness Encounter Date Complaint History Of Prese nt Illness consult Functional Status Date Functional Assessmen t No Information Instructions Date Instruction Additional Infor mation No Information Assessments Type Assessment Date assessment Encounter for screening for dent al disorders Patient Care Teams Name Effective Dates (start - stop) Status Members No Information
--- OUTSIDE RECORDS SUMMARY | 2025-05-06 08:29 | XMS_ITS | Patient Health Record ---
Author Organization [facility] Address [address] [place] [address] Support Name Relationship Address Phone JORDON HOOK Emergency Contact [address] [place] [phone] LAUREL CHILD Guarantor Unknown [phone] Allergies No Known Allergies Reason For Referral No Information Medications Medication SIG (Take, Route, Frequency, Duration) Notes Start Date End Date Status Pippa 0.25-35 MG-MCG Tablet 1 tablet Orally Once a day Active Social History Tobacco Use: Social History Observation Description Date Details (start date - stop date) Never Smoker NA - NA Social History GeneralSocial InfoQuestionAnswerNotesTransition of Care:ER/UC/hospital since last office visit?NoSpecialist seen since last office visit?NoSubstance abuse/mental health issues of patient/familyPatient -DeniesAbility to understand healthcare/treatmentPatient:GoodTobacco Screen:Are you a:never smoker Social/Support Concerns:Patient:YesAlcohol Screening:Did you have a drink containing alcohol in the past year?NjJaiwnb3TkcuaosnrdofeoKbfjwgxyVxrtrzijlfsrg Barrier:Language Barrier?:Yes Plan Of Treatment No Information Insurance Providers Payer Name Payer Address Payer Phone Subscriber Number Group Number Insured Name Patient Relationship to Insured Coverage Start Date Coverage End Date [employer] [address] [address] [place] [address] [id number] LAUREL CHILD Self - patient is the insured 3 3 Medications Administered Medication Instructions Date of Administration Dosage Notes TB .1 mLTB.1 mL
--- OUTSIDE RECORDS SUMMARY | 2025-05-06 08:30 | XMS_ITS | Encounter Summary ---
Author Organization [facility] Address [address] [place] [address] Care Team Providers Care Lpta Name Role Phone Unavailable Primary Care Provider Unavailabl e Encounter Details DateTypeDepartmentCare Team (Latest Contact Info)Xbrpclcvqte37/27/2025Orders Only BAIRON WRIGHT [address] [place] [address] Imani Burnham MA [address] [place] [address] Social History Tobacco UseTypesPacks/DayYears UsedDateSmoking Tobacco: Never Assessed Estimated Date of DrhhnmjjZodkbiltIkt46/05/2026Based on last menstrual period of 10/29/2024Sex and Gender InformationValueDate RecordedSex Assigned at BirthNot on fileLegal EcbPkptyz25/15/2023 6:37 PM EDTGender IdentityNot on fileSexual OrientationNot on filedocumented as of this encounter Plan of Treatment DateTypeDepartmentCare Team (Latest Contact Info)Lfzlxutunxy55/12/2025 1:30 PM ESTRoutine [facility] WRIGHT [address] [place] [address] Vanesa Page PA [address] [place] [address] documented as of this encounter Procedures Procedure NamePriorityDate/TimeAssociated DiagnosisCommentsPAP TEST, EXTERNAL Bisneau3604/14/2025 12:00 AM EDTdocumented in this encounter Results * PAP TEST, EXTERNAL (04/14/2025 12:00 AM EDT) Narrative Authorizing ProviderResult TypeResult StatusCorey Lena DOLAB CYTOLOGY ORDERABLESFinal ResultPerforming OrganizationAddressCity/State/ZIP CodePhone Number EXTERNAL LAB documented in this encounter Visit Diagnoses Not on filedocumented in this encounter
--- OUTSIDE RECORDS SUMMARY | 2025-05-06 08:30 | XMS_ITS | Clinical Summary ---
Author Organization [facility] Address [address] [place] [address] Care Team Providers Care Public Policy Professor Name Role Phone Unavailable Primary Care Provider Unavailabl e Allergies No known active allergies Medications MedicationSigDispense QuantityRefillsLast FilledStart DateEnd DateStatus Dwgaeith-Old-Hc-FA ( 1 + IRON PO) Take 1 tablet by mouth DailyActive metroNIDAZOLE (Flagyl) 500 MG tablet Indications:BV (bacterial vaginosis)Take 1 tablet (500 mg) by mouth in the morning and 1 tablet (500 mg) before bedtime. Do all this for 7 days. Do not drink alcohol while taking this medication. 14 tablet Expired Encounters DateTypeDepartmentCare VlfhSqiiyfhcnoi99/27/2025Orders Only [facility] WR[facility] [address] [facility] [facility] [place] [address] Tej Gustine, MA 04/21/2025Telephone [facility] [address] [facility] [place] [address] Samuel VázquezserraYUKI vences 04/16/2025Telephone [facility] WRIGHT [address] [facility] [place] [address] Ashok Paredes DO 04/14/2025 1:40 PM EDTRoutine [facility] Ayse WRIGHT [address] [place] [address] Ashok Paredes DO Second trimester ([facility]); 23 weeks gestation of ([facility]); Diabetes mellitus csacqzdbe85/15/2025 1:00 PM EDTAncillary Procedure [facility] [place] [address] Low-lying placenta ([facility])04/14/2025External Result Encounter [facility] External Department Unsolicited Ashok Paredes DO 04/05/2025Patient Outreach [facility] [address] [place] [address] Vanesa Shah LPN 04/01/2025bstract [facility] [address] [place] [address] Vanesa Shah LPN 03/19/2025[place] [phone] Imani Burnham MA 03/18/2025 10:20 [place] [phone] Vanesa Page PA 20 weeks gestation of ([facility]); Second trimester ([facility])03/18/2025 9:00 AM EDTAncillary [place] [phone] Screening, , for anatomic survey ([facility])02/18/2025 10:40 [place] [address] Ashok Paredes DO Second trimester ([facility]); 16 weeks gestation of ([facility]); Screening, , for anatomic survey ([facility])02/18/2025amboo [place] [phone] Ashok Paredes DO 02/08/2025bstract N[facility] [address] [phone] Ashok Paredes DO 02/08/2025bstract [facility] WRIGHT [address] [facility] [address] [place] [phone] Vanesa Page PA from Last 3 Months Social History Tobacco UseTypesPacks/DayYears UsedDateSmoking Tobacco: Never Assessed Estimated Date of MbcxmhejLzkelcylEvx93/05/2026Based on last menstrual period of 10/29/2024Sex and Gender InformationValueDate RecordedSex Assigned at BirthNot on fileLegal ZozMwehgv44/15/2023 6:37 PM EDTGender IdentityNot on fileSexual OrientationNot on file Last Filed Vital Signs Vital SignReadingTime TakenCommentsBlood Eufffiaj802/7004/14/2025 1:39 PM EDT Pulse--Temperature--Respiratory Rate--Oxygen Saturation--Inhaled Oxygen Concentration--Eovoin76.4 kg (175 lb 1.9 oz)04/14/2025 1:39 PM EDTHeight--Body Mass Index-- Plan of Treatment DateTypeDepartmentCare Team (Latest Contact Info)Pbutuqalibf74/12/2025 1:30 PM ESTRoutine [facility] Ayse WRIGHT [address] [facility] [address] [place] [phone] Vanesa Page, PA [address] [place], [place] [phone] Procedures Procedure NamePriorityDate/TimeAssociated DiagnosisCommentsCULTURE, URINE, YLSBBBJZnqfowl88/16/2025 8:54 AM EDT Missed menses RECURRENT VAGINITIS (HTRX)Eykfgja1204/14/2025 4:23 PM EDT POCT URINALYSIS EKAHUIOKLgsezsq28/15/2025 1:53 PM EDT 23 weeks gestation of ([facility]) US OB LIMITED 1+ BCMKMRKZwxrizc16/15/2025 1:29 PM EDT Low-lying placenta ([facility]) PAP TEST, HWAONUPKMdaxzuj02/15/2025 12:00 AM EDTPOCT URINALYSIS DIPSTICKRoutine 03/18/2025 10:17 AM EDT 20 weeks gestation of ([facility]) Second trimester ([facility]) US OB 14+ WEEKS ANATOMY GYSGCpuphjz40/18/2025 10:03 AM EDT Screening, , for anatomic survey ([facility]) POCT URINALYSIS ABEVJCTUFkmcdgm31/21/2025 11:21 AM EDT Second trimester ([facility]) 16 weeks gestation of ([facility]) from Last 3 Months Results * Urine culture (04/15/2025 8:54 AM EDT)Specimen (Source)Anatomical Location / LateralityCollection Method / VolumeCollection TimeReceived TimeUrineUrine specimen obtained by clean catch procedure / Unknown Narrative Authorizing ProviderResult TypeResult StatusCorey Sharp [facility] MICROBIOLOGY - GENERAL ORDERABLESFinal ResultPerforming OrganizationAddressCity/State/ZIP Code Phone Number EXTERNAL LAB * (ABNORMAL) RECURRENT VAGINITIS (HTRX) (04/14/2025 4:23 PM EDT)ComponentValue Ref RangeTest MethodAnalysis TimePerformed AtPathologist SignatureATOPOBIUM HNUPPPM90.676(A)19.961 - 24.689 ppm04/16/2025 7:21 AM EDTHealthTrackRx at LabPortATOPOBIUM VAGINAEDetected(A)19.961 - 24.689 ppm04/16/2025 7:21 AM EDT [facility] at LabPortBVAB 2,3 (BACTERIAL VAGINOSIS ASSOCIATED BACTERIA 2, 3); MOBILUNCUS SPP25.076(A)19.961 - 24.689 ppm04/16/2025 7:21 AM EDT [facility] at LabPortBVAB 2,3 (BACTERIAL VAGINOSIS ASSOCIATED BACTERIA 2, 3); MOBILUNCUS SPPDetected(A)19.961 - 24.689 ppm04/16/2025 7:21 AM EDT [facility] at LabPortCANDIDA ALBICANS, PARAPSILOSIS, TTQCNFMBWR303.000 - 30.347 ppm04/16/2025 7:21 AM EDTHealthTrackRx at LabPortCANDIDA ALBICANS, PARAPSILOSIS, TROPICALISNot Bjppzgme85.000 - 30.347 ppm04/16/2025 7:21 AM EDT [facility] at LabPortCANDIDA DANTFPZB112.000 - 31.618 ppm04/16/2025 7:21 AM EDTHealthTrackRx at LabPortCANDIDA GLABRATANot Pkntxfkl30.000 - 31.618 ppm 04/16/2025 7:21 AM EDTHealthTrackRx at LabPortCANDIDA UDZHQE623.000 - 30.873 ppm04/16/2025 7:21 AM EDTHealthTrackRx at LabPortCANDIDA KRUSEINot Detected 23.000 - 30.873 ppm04/16/2025 7:21 AM EDTHealthTrackRx at LabPortCHLAMYDIA CPFBWEGPLXM192.000 - 31.586 ppm04/16/2025 7:21 AM EDTHealthTrackRx at [facility] CHLAMYDIA TRACHOMATISNot Uotllalq98.000 - 31.586 ppm04/16/2025 7:21 AM EDT [facility] at LabPortGARDNERELLA JGTNMIDVW90.615(A)19.961 - 24.689 ppm 04/16/2025 7:21 AM EDTHealthTrackRx at LabPortGARDNERELLA VAGINALISDetected(A) 19.961 - 24.689 ppm04/16/2025 7:21 AM EDTHealthTrackRx at LabPortMEGASPHAERA (TYPES 1, 2)12.5290(A)19.961 - 24.689 ppm04/16/2025 7:21 AM EDTHealthTrackRx at LabPortMEGASPHAERA (TYPES 1, 2)Detected(A)19.961 - 24.689 ppm04/16/2025 7:21 AM EDTHealthTrackRx at LabPortNEISSERIA ACBLOXFHTGH160.000 - 32.587 ppm 04/16/2025 7:21 AM EDTHealthTrackRx at [facility] HealthNEISSERIA GONORRHOEAENot Hxforgqb48.000 - 32.587 ppm04/16/2025 7:21 AM EDTHealthTrackRx at [facility] TRICHOMONAS UDXKBVING186.000 - 31.995 ppm04/16/2025 7:21 AM EDTHealthTrackRx at [facility]Care HealthTRICHOMONAS VAGINALISNot Onwpqcyp94.000 - 31.995 ppm04/16/2025 7:21 AM EDTHealthTrackRx at [facility]Care HealthMYCOPLASMA IPLTFEGQDB466.961 - 24.689 ppm 04/16/2025 7:21 AM EDTHealthTrackRx at MultiCare HealthMYCOPLASMA GENITALIUMNot Meqfalsz81.961 - 24.689 ppm04/16/2025 7:21 AM EDTHealthTrackRx at [facility], C; MEFA22.795(A)23.000 - 27.500 ppm04/16/2025 7:21 AM EDTHealthTrackRx at [facility], C; MEFADetected(A)23.000 - 27.500 ppm04/16/2025 7:21 AM EDT [facility] B, TET M25.407(A)23.000 - 27.500 ppm04/16/2025 7:21 AM EDTHealthTrackRx at [facility] B, TET MDetected(A)23.000 - 27.500 ppm 04/16/2025 7:21 AM EDTHealthTrackRx at MultiCare HealthSpecimen (Source)Anatomical Location / LateralityCollection Method / VolumeCollection TimeReceived Time Rkhsjs5404/14/2025 4:23 PM EDT1 2:19 AM EDT Narrative Authorizing ProviderResult TypeResult StatusCorey Lena DOLAB BLOOD ORDERABLES Final ResultPerforming OrganizationAddressCity/State/ZIP CodePhone Number [facility] [address] [address] * (ABNORMAL) POCT urinalysis dipstick manually resulted (04/14/2025 1:53 PM EDT) Only the most recent of3 resultswithin the time period is included. ComponentValueRef RangeTest MethodAnalysis TimePerformed AtPathologist Signature Color, UAYellowClarity, UAClearGlucose, UANegativeNegative - 1999(110) ++++ mg/dLBilirubin, UANegativeNegative - 4(70) +++ mg/dLKetones, UANegativeNegative - 160(16) ++++ mg/dLSpec Grav, UA1.0151 - 1.03Blood, UANegativeNegative - 50 [place]/mcLpH, UA6.55 - 9Protein, UANegativeNegative - 1999(20) ++++ mg/dL Urobilinogen, UA2.00.2 - 12 mg/dLLeukocytes, UA3+Negative - 500+++ Yovanny/mcL Nitrite, UANegativeNegative - PositiveSpecimen (Source)Anatomical Location / LateralityCollection Method / VolumeCollection TimeReceived VhlwSlwis44/15/2025 1:53 PM EDT Narrative Authorizing ProviderResult TypeResult StatusCorey Lena DOPOINT OF CARE TEST ENTER/EDIT ORDERABLESFinal Result * US OB limited 1+ fetuses (04/14/2025 1:29 PM EDT)Anatomical RegionLaterality ModalityBodyUltrasoundSpecimen (Source)Anatomical Location / Laterality Collection Method / VolumeCollection TimeReceived Time04/15/2025 12:37 PM EDT Impressions 04/15/2025 1:36 PM EDT Single viable intrauterine , persistent low lying anterior placenta TRANSCRIBED BY: ? ELECTRONICALLY SIGNED BY: Damon Brody MD Narrative 04/15/2025 1:36 PM EDT FINDINGS: Comparison March 18, 2025. Single viable intrauterine , normal cardiac activity, 140 bpm. ??Cephalic presentation. Anterior low lying placenta remains inferior aspect 2.3 cm from the closed internal cervical os, cervical length 4.5 cm. ?? Gestational age of 23 weeks, 6 days with an estimated delivery date of August 05, 2025. Procedure Note Damon Brody MD - 04/15/2025 FINDINGS: Comparison March 18, 2025. Single viable intrauterine , normal cardiac activity, 140 bpm.Cephalic presentation. Anterior low lying placenta remains inferior aspect 2.3 cm from the closed internal cervical os, cervical length 4.5 cm. Gestational age of 23 weeks, 6 days with an estimated delivery date ofFebru2025. IMPRESSION: Single viable intrauterine , persistent low lying anteriorplacenta TRANSCRIBED BY: ELECTRONICALLY SIGNED BY: Damon Brody MD Authorizing ProviderResult TypeResult StatusCorey Lena DOIMG OB US PROCEDURES Final Result * PAP TEST, EXTERNAL (04/14/2025 12:00 AM EDT) Narrative Authorizing ProviderResult TypeResult StatusCorey Lena DOLAB CYTOLOGY ORDERABLESFinal ResultPerforming OrganizationAddressCity/State/ZIP CodePhone Number EXTERNAL LAB * US OB 14+ weeks anatomy scan (03/18/2025 10:03 AM EDT)Anatomical Region LateralityModalityBodyUltrasoundSpecimen (Source)Anatomical Location / LateralityCollection Method / VolumeCollection TimeReceived Time03/18/2025 12:16 PM EDT Impressions 03/18/2025 1:11 PM EDT Single, live intrauterine , current sonographic age of 20 weeks and 2 days, with an estimated date of delivery of August 03, 2025 * ??Estimated Weight (g) by Percentile is based upon an accurate estimated age based onlast menstrual period. ?? TRANSCRIBED BY: ? ELECTRONICALLY SIGNED BY: Damon Brody MD Narrative 03/18/2025 1:11 PM EDT FINDINGS: A single, live intrauterine is present with normal cardiac rate of 157 ?? beats perminute. Normal activity ??Morphology is grossly normal. The cervix is long and closed,4.0 cm.??The placenta anterior, low lying at least 2.0 cm from the closed internal cervical os. ??The current sonographic age is ??20weeks and 2 days, based on the following measurements: BPD ?4.7cm (20 ??weeks,1 ??days) Head Circumference ?17.5cm ( 20 weeks,0 ??days) Abdominal Circumference ?14.8cm (20 ??weeks,1 ??days) Femur Length ? 3.4cm (20 weeks,4 ??days) Presentation ? Cephalic ? Placenta ?Anterior low lying placenta Weight (g) by Percentile ?61.1 % * These measurements result in an estimated date of delivery of August 03, 2025. ?The current estimated weight is ??343 ??grams ( ??pound, 12 ??ounces). ?? Procedure Note Damon Brody MD - 03/18/2025 [...] BY: ELECTRONICALLY SIGNED BY: Damon Brody MD Authorizing ProviderResult TypeResult StatusCorey Lena DUNHAM OB US PROCEDURES Final Result from Last 3 Months Insurance * Guarantor: Justin UribeAccount TypeRelation to PatientDate of BirthPhone Billing AddressPersonal/PnthutGmxf2003 [address] [address]
--- OUTSIDE RECORDS SUMMARY | 2025-05-06 08:30 | XMS_ITS ---
Author Organization [facility] Source Produ ction (ClinicalSummary Clone) Address Unknown Care Team Providers Care Electric Meter Tester Name Role Phone Unavailable Primary Care Physician Unavailab le Results * [UNITY] ANEUPLOIDY NIPT Performed by: Future [employer] Component Value Range Date Fraction 7.4% 02/08/2025 04:40 am UTCRh(D) NIPTRhD CPXNWVXB85/11/2025 04:40 am UTCSex Chromosome AneuploidyNOT OJOBBWTT25/11/2025 04:40 am UTCMonosomy XLOW RISK <1 in 04:40 am UTCTrisomy 13LOW RISK <1 in 04:40 am UTCTrisomy 18LOW RISK <1 in 04:40 am UTCTrisomy 21LOW RISK <1 in 04:40 am UTCFetal GghMTNDJS82/11/2025 04:40 am UTCPregnancy VxsrjojywANAQXGIAC74/11/2025 04:40 am UTCFor detailed report, see PDFSee PDF 02/08/2025 04:40 am UTC02/08/2025 04:40 am UTC Social History Observation Value Start Date End Date
[2025-05-06 09:36] LABS: Hematocrit 34.4 % (36.0-48.0); Hemoglobin 11.2 g/dL (12.0-16.0); Immature Granulocytes Abs Auto 0.14 10^3/uL (0.00-0.03); Immature Granulocytes Pct Auto 1.2 % (0.0-0.5); Lymphocytes Absolute Auto 1.7 10^3/uL (1.2-3.8); Mean Corpuscular HGB Conc 32.6 g/dL (29.9-35.2); Mean Corpuscular Hemoglobin 28.3 pg (26.7-34.0); Mean Corpuscular Volume 86.9 fL (81.0-99.0); Platelet Count 193 10^3/uL (150-450); Red Blood Count 3.96 10^6/uL (4.20-5.40); White Blood Count 11.7 10^3/uL (4.0-11.0)
[2025-05-06 10:47] LABS: Glucose 1 Hour 149 mg/dL (<130)
== END 2025-05-06 08:25 | disposition home or self-care (01) ==
LOC: LAB 08:26
PROVIDERS: PCP Family Medicine; Visit Provider Obstetrics & Gynecology
DX: Z13.1 Encounter for screening for diabetes mellitus (principal)
CPT/HCPCS: 36415; 82950; 85025

== ENCOUNTER 2025-05-21 09:05 | Outpatient (OUT) | payer MEDICAID, SELFPAY ==
--- OUTSIDE RECORDS SUMMARY | 2022-08-02 04:00 | XMS_ITS | Continuity of Care Document ---
Author Organization [facility] Address [address] [place] [address] Phone Care Team Providers Care Asphalt Paver Operator Name Role Phone Seven Harrison DDS Unavailable Unavail able Allergies, Adverse Reactions, Alerts Substance Reaction Status Criticality No Known Allergies Active No Inform ation Procedures Procedure Date Panoramic Film Limited Oral Eval Nutrit Couns For Control Of [place] Dis Aug Advance Directives Directive Yes / No Effective Date File Name No Information Encounters Encounter Description Practice Location Reason(s) For Visit Diagnoses Date Provider Providers Copied on Encounter [facility], [address] [place], [place], [id number], [place] tel:[phone] Dental Clinic consult (chief complaint) Encounter for screening for dental disorders [facility] Amezcua. [address] [place], [place], [id number], [place]. tel:[phone] Family History Family Member Type Diagnosis Age At Onset No Information Payers Payer name Insurance type Covered libertarian ID Authoriza anthony(s) D Aetna 17 [id number] Social History Type Description Quantity Date Captured Comments Alcohol Use Details Unknown Caffeine Use Details Unknown Tobacco Use Status Current non-smoker Smoking Status Never smoker Non-Smoking Tobacco Use Details : No Details Available : No Details Available [id number] SexFemaleSexual OrientationStraight or heterosexualGender [id number] Vital Signs Date / Time: Height Weight [...]
--- OUTSIDE RECORDS SUMMARY | 2025-05-12 13:30 | XMS_ITS | Encounter Summary ---
Author Organization [facility] Address [address] [place] [address] Care Team Providers Care Local Company Intermodal Truck Driver Name Role Phone Unavailable Primary Care Provider Unavailabl e Reason for Visit * ReasonCommentsRoutine Visit Encounter Details DateTypeDepartmentCare Team (Latest Contact Info)Usalpuvaall08/12/2025 1:30 PM ESTRoutine [facility] [place] [facility] [address] [place] [phone] Vanesa Soliz PA [address] [place], [facility]11 Size of fetus inconsistent with dates in second trimester ([facility]) (Primary Dx); Second trimester ([facility]); 27 weeks gestation of ([facility]); Diabetes mellitus screening Social History Tobacco UseTypesPacks/DayYears UsedDateSmoking Tobacco: Never Assessed Estimated Date of CkwrutzlNuccsmmkVsn29/05/2026Based on last menstrual period of 10/29/2024Sex and Gender InformationValueDate RecordedSex Assigned at BirthNot on fileLegal CnyObuxgq16/15/2023 6:37 PM EDTGender IdentityNot on fileSexual OrientationNot on filedocumented as of this encounter Last Filed Vital Signs Vital SignReadingTime TakenCommentsBlood Usybhcyd403/7205/12/2025 1:55 PM EST Pulse--Temperature--Respiratory Rate--Oxygen Saturation--Inhaled Oxygen Concentration--Falydz79.1 kg (181 lb)05/12/2025 1:55 PM ESTHeight--Body Mass Index--documented in this encounter Progress Notes * Imani Burnham MA - 05/12/2025 1:30 PM EST Reason for Appointment: Patient ID: Justin Uribe is a 20 y.o. female who presents for Routine Visit Patient presents today for Return OB appointment. MEDICATIONS Current Outpatient Medications Medication Instructions Znzzeyhf-Xmi-Hh-FA ( 1 + IRON PO) 1 tablet, Daily ALLERGIES No Known Allergies PROBLEMS Active Ambulatory Problems Diagnosis Date Noted No Active Ambulatory Problems Resolved Ambulatory Problems Diagnosis Date Noted No Resolved Ambulatory Problems No Additional Past Medical History HISTORY PAST MEDICAL HISTORY SOCIAL HISTORY No past medical history on file. Social History Tobacco Use Smoking status: Not on file Smokeless tobacco: Not on file Substance Use Topics Alcohol use: Not on file Drug use: Not on file FAMILY HISTORY No family history on file. SURGICAL HISTORY History reviewed. No pertinent surgical history. REVIEW OF SYSTEMS Review of Systems: Review of Systems OBJECTIVE Objective: OBGyn Exam Vitals: There is no height or weight on file to calculate BMI. BP: Patient's last menstrual period was 10/29/2024. Assessment/Plan ICD-10-CM 1. Second trimester ([facility]) Z34.92 POCT urinalysis dipstick manually resulted 2. 27 weeks gestation of ([facility]) Z3A.27 3. Diabetes mellitus screening Z13.1 CANCELED: CBC CANCELED: Glucose tolerance, 1 hour CANCELED: CBC CANCELED: Glucose tolerance, 1 hour Assessment/Plan Return OB: Patient presents today for a routine obstetrics appointment. Patient is currently 27w6d . Patient states she is doing well but has complaints of being tired due to current . Patient has verbalizes frequent movement. labor precautions was discussed/given and patient was instructed to perform kick counts three times a day. Patient failed the 1- hr glucose 149. A 3-hr glucose order was sent to [facility] to obtain. Pt was advised not to eat/drink after midnight. PVU. Orders Placed This Encounter Procedures POCT urinalysis dipstick manually resulted Follow Up: Patient is to return to office in 3 week for routine OB appointment. Documented by Imani Burnham MA on behalf of: DASHA Kwong documented in this encounter Miscellaneous Notes * Addendum Note - DASHA Kwong - 05/12/2025 1:30 PM ESTAddended by: VANESA SOLIZ on: 05/12/2025 01:58 PM Modules accepted: Orders documented in this encounter Plan of Treatment DateTypeDepartmentCare Team (Latest Contact Info)Eefmnnelknb85/26/2025 2:00 PM ESTAncillary Procedure [facility] [address] [place] [phone] 05/26/2025 3:10 PM ESTRoutine [facility] [address] [place] [address] Ashok Paredes DO [address] [place], [place] [id number] NameTypePriorityAssociated DiagnosesOrder ScheduleUS OB follow up transabdominal approachImagingRoutine Size of fetus inconsistent with dates in second trimester ([facility]) Expected: 05/12/2025, Expires: 09/09/2025documented as of this encounter Procedures Procedure NamePriorityDate/TimeAssociated DiagnosisCommentsPOCT URINALYSIS MKDUMNUXNwftejl79/12/2025 1:50 PM EST Second trimester ([facility]) documented in this encounter Results * (ABNORMAL) POCT urinalysis dipstick manually resulted (05/12/2025 1:50 PM EST) ComponentValueRef RangeTest MethodAnalysis TimePerformed AtPathologist SignatureColor, UAYellowClarity, UAClearGlucose, UA1+Negative - 1999(110) ++++ mg/dLBilirubin, UANegativeNegative - 4(70) +++ mg/dLKetones, UANegative Negative - 160(16) ++++ mg/dLSpec Grav, UA1.0301 - 1.03Blood, UANegative Negative - 50 Conrado/mcLpH, UA6.05 - 9Protein, UA1+Negative - 1999(20) ++++ mg/dL Urobilinogen, UA>=8.00.2 - 12 mg/dLLeukocytes, UA2+Negative - 500+++ Yovanny/mcL Nitrite, UANegativeNegative - PositiveSpecimen (Source)Anatomical Location / LateralityCollection Method / VolumeCollection TimeReceived TimeUrine 05/12/2025 1:50 PM EST Narrative Authorizing ProviderResult TypeResult StatusSentara [facility] TEST ENTER/EDIT ORDERABLESFinal Result documented in this encounter Visit Diagnoses Diagnosis Size of fetus inconsistent with dates in second trimester ([facility])- Primary Second trimester ([facility]) state, incidental 27 weeks gestation of ([facility]) Diabetes mellitus screening Screening for diabetes mellitus documented in this encounter
--- OUTSIDE RECORDS SUMMARY | 2025-05-21 09:09 | XMS_ITS | Encounter Summary ---
Author Organization [facility] Address [address] [facility] [place] [address] Care Team Providers Care Sandwich Artist Name Role Phone Unavailable Primary Care Provider Unavailabl e Encounter Details DateTypeDepartmentCare Team (Latest Contact Info)Ztpgdpqhhzr69/12/2025amboo flowsheet BAIRON WRIGHT [address] [place] [address] Vanesa Page PA [address] [place], [facility]11 Social History Tobacco UseTypesPacks/DayYears UsedDateSmoking Tobacco: Never Assessed Estimated Date of HfxoptkvIewpfbduHre84/05/2026Based on last menstrual period of 10/29/2024Sex and Gender InformationValueDate RecordedSex Assigned at BirthNot on fileLegal VnzKkqwux44/15/2023 6:37 PM EDTGender IdentityNot on fileSexual OrientationNot on filedocumented as of this encounter Plan of Treatment DateTypeDepartmentCare Team (Latest Contact Info)Zcfowfryfyh48/26/2025 2:00 PM ESTAncillary Procedure [facility] WR[facility] [address] [place] [address] [place] [address] 05/26/2025 3:10 PM ESTRoutine BAIRON WRIGHT [address] [place] [address] [place] [address] Ashok Paredes DO [address] [place], [facility]11 documented as of this encounter Visit Diagnoses Not on filedocumented in this encounter
--- OUTSIDE RECORDS SUMMARY | 2025-05-21 09:09 | XMS_ITS | Patient Health Record ---
Author Organization [facility] Address [address] [place] [address] Support Name Relationship Address Phone JORDON HOOK Emergency Contact [address] [place] [phone] LAUREL CHILD Guarantor Unknown [phone] Allergies No Known Allergies Reason For Referral [...] a drink containing alcohol in the past year?CfYpdcue1ZnfzjuaqogknhtWlzikwhhLqsqmrkxyzqtk Barrier:Language Barrier?:Yes Plan Of Treatment No Information Insurance Providers Payer Name Payer Address Payer Phone Subscriber Number Group Number Insured Name Patient Relationship to Insured Coverage Start Date Coverage End Date [employer] [address] [address] [place] [address] [id number] LAUREL CHILD Self - patient is the insured 3 3 Medications Administered Medication Instructions Date of Administration Dosage Notes TB .1 mLTB.1 mL
--- OUTSIDE RECORDS SUMMARY | 2025-05-21 09:09 | XMS_ITS | Encounter Summary ---
Author Organization [facility] Address [address] [facility] [place] [address] Care Team Providers Care Timing Adjuster Name Role Phone Unavailable Primary Care Provider Unavailabl e Encounter Details DateTypeDepartmentCare Team (Latest Contact Info)Nerqahntatr04/10/2025[place] [address] Karen Vázquez MA Social History Tobacco UseTypesPacks/DayYears UsedDateSmoking Tobacco: Never Assessed Estimated Date of BijoyeeiBomexpxqQld37/05/2026ased on last menstrual period of 10/29/2024Sex and Gender InformationValueDate RecordedSex Assigned at BirthNot on fileLegal UdkKghehp98/15/2023 6:37 PM EDTGender IdentityNot on fileSexual OrientationNot on filedocumented as of this encounter Miscellaneous Notes * Telephone Encounter - Karen Vázquez MA - 05/10/2025 11:55 AM EST Notified of glucose results. Pt aware to fast for lab drawn. Order faxed to [facility]. PVU documented in this encounter Plan of Treatment DateTypeDepartmentCare Team (Latest Contact Info)Wfdufekreks39/26/2025 2:00 PM [place]An[place] [address] 05/26/2025 3:10 [place] [address] Ashok Paredes, DO [address] [facility] [address] [place] [address] NameTypePriorityAssociated DiagnosesOrder ScheduleGlucose tolerance, 3 hoursLab Routine Elevated glucose tolerance test Expected: 05/10/2025 (Approximate), Expires: 05/10/2026documented as of this encounter Visit Diagnoses Diagnosis Elevated glucose tolerance test Impaired glucose tolerance test documented in this encounter
--- OUTSIDE RECORDS SUMMARY | 2025-05-21 09:09 | XMS_ITS | Clinical Summary ---
Author Organization [facility] Address [address] [facility] [place] [address] Care Team Providers Care Cyber Forensic Specialist Name Role Phone Unavailable Primary Care Provider Unavailabl e Allergies No known active allergies Medications MedicationSigDispense QuantityRefillsLast FilledStart DateEnd DateStatus Jktsttix-Flj-Xk-FA ( 1 + IRON PO) Take 1 tablet by mouth DailyActive metroNIDAZOLE (Flagyl) 500 MG tablet Indications:BV (bacterial vaginosis)Take 1 tablet (500 mg) by mouth in the morning and 1 tablet (500 mg) before bedtime. Do all this for 7 days. Do not drink alcohol while taking this medication. 14 tablet Expired Encounters DateTypeDepartmentCare LrzfIfenvywnmmu36/12/2025 1:30 PM ESTRoutine [facility] WR[facility] [address] [place] [address] [place] [address] Vanesa Page PA Size of fetus inconsistent with dates in second trimester ([facility]) (Primary Dx); Second trimester ([facility]); 27 weeks gestation of ([facility]); Diabetes mellitus /12/2025amboo flowsheet [facility] Ay[facility] WR[facility] [address] [place] [address] [place] [address] Vanesa Page PA 05/10/2025Telephone [facility] WR[facility] [address] [place] [address] [place] [address] Karen Vázquez MA 05/06/2025linisync Result Encounter NOMS External Department Unsolicited Ashok Paredes DO 04/26/2025Orders Only [facility] [place] [facility] [address] [facility] [facility] [place] [address] Imani Burnham MA 04/21/2025Telephone [facility] [address] [facility] [place] [place] [address] Karen Vázquez MA 04/16/2025Telephone [facility] [place] [facility] [address] [facility] [facility] [address] [place] [address] Ashok Paredes DO 04/14/2025 1:40 PM EDTRoutine [facility]EL[facility] [address] [facility] [place] [place] [address] Ashok Paredes, DO Second trimester ([facility]); 23 weeks gestation of ([facility]); Diabetes mellitus zuwhvtmmw08/15/2025 1:00 PM EDTAncillary Procedure [facility] [address] [facility] [place] [address] Low-lying placenta ([facility])04/14/2025External Result Encounter [facility]OMS External Department Unsolicited Ashok Paredes DO 04/05/2025Patient Outreach [facility] [address] [place] [address] Vanesa Shah LPN 04/01/2025bstract [facility] [address] [place] [address] Vanesa Shah LPN 03/19/2025Telephone [facility] [address] [facility] [place] [address] Imani Burnham MA 03/18/2025 10:20 AM EDTRoutine [facility] [address] [facility] [place] [address] Vanesa Page, PA 20 weeks gestation of ([facility]); Second trimester ([facility])03/18/2025 9:00 AM EDTAncillary Procedure [facility] Ay[facility] [address] [place] [phone] Screening, , for anatomic survey ([facility])02/18/2025 10:40 [place] [address] Ashok Paredes DO Second trimester ([facility]); 16 weeks gestation of ([facility]); Screening, , for anatomic survey ([facility])5[place] [address] Ashok Paredes DO from Last 3 Months Social History Tobacco UseTypesPacks/DayYears UsedDateSmoking Tobacco: Never Assessed Estimated Date of BysrlzbdYljkjubuOwb60/05/2026Based on last menstrual period of 10/29/2024Sex and Gender InformationValueDate RecordedSex Assigned at BirthNot on fileLegal WqgGkezat47/15/2023 6:37 PM EDTGender IdentityNot on fileSexual OrientationNot on file Last Filed Vital Signs Vital SignReadingTime TakenCommentsBlood Iysnwfzn209/7205/12/2025 1:55 PM EST Pulse--Temperature--Respiratory Rate--Oxygen Saturation--Inhaled Oxygen Concentration--Qyemvf38.1 kg (181 lb)05/12/2025 1:55 PM ESTHeight--Body Mass Index-- Plan of Treatment DateTypeDepartmentCare Team (Latest Contact Info)Ygbrpgolljg38/26/2025 2:00 PM ESTAncillary [place] [address] 05/26/2025 3:10 PM ESTRoutine [facility] WRIGHT [address] [place] [address] Ashok Paredes DO [place] [address] Procedures Procedure NamePriorityDate/TimeAssociated DiagnosisCommentsPOCT URINALYSIS WFPSPYNJDevtnrr30/12/2025 1:50 PM EST Second trimester ([facility]) GLUCOSE 1 RQOVYpyzlyz54/06/2025 9:31 AM EST ALL CBC WITH AUTO MSEXWjxtmgu72/06/2025 9:31 AM EST CULTURE, URINE, TKTEMZUXnhwmjp75/16/2025 8:54 AM EDT Missed menses RECURRENT VAGINITIS (HTRX)Coslxcm7104/14/2025 4:23 PM EDT POCT URINALYSIS KAAMIRKVWpymghv75/15/2025 1:53 PM EDT 23 weeks gestation of ([facility]) US OB LIMITED 1+ MQELCIBWqhmapg23/15/2025 1:29 PM EDT Low-lying placenta ([facility]) PAP TEST, MDTQAKTCBzcjchm28/15/2025 12:00 AM EDTPOCT URINALYSIS DIPSTICKRoutine 03/18/2025 10:17 AM EDT 20 weeks gestation of ([facility]) Second trimester ([facility]) US OB 14+ WEEKS ANATOMY QXGWCkyjafm53/18/2025 10:03 AM EDT Screening, , for anatomic survey ([facility]) POCT URINALYSIS TNRPRUHLQgezpgf69/21/2025 11:21 AM EDT Second trimester ([facility]) 16 weeks gestation of ([facility]) from Last 3 Months Results * (ABNORMAL) POCT urinalysis dipstick manually resulted (05/12/2025 1:50 PM EST) Only the most recent of4 resultswithin the time period is included. ComponentValueRef RangeTest MethodAnalysis TimePerformed AtPathologist Signature Color, UAYellowClarity, UAClearGlucose, UA1+Negative - 1999(110) ++++ mg/dL Bilirubin, UANegativeNegative - 4(70) +++ mg/dLKetones, UANegativeNegative - 160(16) ++++ mg/dLSpec Grav, UA1.0301 - 1.03Blood, UANegativeNegative - 50 Conrado/mcLpH, UA6.05 - 9Protein, UA1+Negative - 1999(20) ++++ mg/dLUrobilinogen, UA >=8.00.2 - 12 mg/dLLeukocytes, UA2+Negative - 500+++ Yovanny/mcLNitrite, UANegative Negative - PositiveSpecimen (Source)Anatomical Location / LateralityCollection Method / VolumeCollection TimeReceived MedlDxbyj87/12/2025 1:50 PM EST Narrative Authorizing ProviderResult TypeResult StatusVanesa Page [facility] TEST ENTER/EDIT ORDERABLESFinal Result * (ABNORMAL) GLUCOSE 1 HOUR (05/06/2025 9:31 AM EST)ComponentValueRef RangeTest MethodAnalysis TimePerformed AtPathologist SignatureGLUCOSE 1 QXIJ336(H)<130 mg/dLTBHSpecimen (Source)Anatomical Location / LateralityCollection Method / VolumeCollection TimeReceived Time05/06/2025 9:31 AM EST05/06/2025 9:32 AM EST Narrative [facility] - 05/06/2025 10:56 AM EST Authorizing ProviderResult TypeResult StatusAshok KAUFFMAN BLOOD ORDERABLES Final ResultPerforming OrganizationAddressCity/State/ZIP CodePhone Number [facility] * (ABNORMAL) ALL CBC WITH AUTO DIFF (05/06/2025 9:31 AM EST)ComponentValueRef RangeTest MethodAnalysis TimePerformed AtPathologist SignatureTBH WBC11.7(H) 4.0 - 11.0 10 3/uLTBHTBH RBC3.96(L)4.20 - 5.40 10 6/uLTBHTBH HGB11.2(L)12.0 - 16.0 g/dLTBHTBH HCT34.4(L)36.0 - 48.0 %TBHTBH MCV86.981.0 - 99.0 fLTBHTBH MCH 28.326.7 - 34.0 pgTBHTBH MCHC32.629.9 - 35.2 g/dLTBHTBH RDW12.411.0 - 15.0 % TBHTBH RPE485971 - 450 10 3/uLTBHTBH MPV10.89.5 - 13.5 fLTBHNEUTROPHILS PERCENT AUTO75.3(H)43.0 - 75.0 %TBHLYMPHOCYTES PERCENT AUTO14.3(L)20.5 - 60.0 %TBHMONOCYTES PERCENT AUTO7.61.7 - 12.0 %TBHTBH EO %1.30.9 - 7.0 %TBHBASOPHILS PERCENT AUTO0.30.2 - 2.0 %TBHIMMATURE GRANULOCYTES PCT AUTO1.2(H)0.0 - 0.5 % TBHNEUTROPHILS ABSOLUTE AUTO8.8(H)1.4 - 6.5 10 3/uLTBHLYMPHOCYTES ABSOLUTE AUTO1.71.2 - 3.8 10 3/uLTBHMONOCYTES ABSOLUTE AUTO0.9(H)0.3 - 0.8 10 3/uLTBH TBH EO #0.20.0 - 0.7 10 3/uLTBHBASOPHILS ABSOLUTE AUTO0.00.0 - 0.1 10 3/uLTBH IMMATURE GRANULOCYTES ABS AUTO0.14(H)0.00 - 0.03 10 3/uLTBHSpecimen (Source) Anatomical Location / LateralityCollection Method / VolumeCollection Time Received Time05/06/2025 9:31 AM EST05/06/2025 9:32 AM EST Narrative [facility] - 05/06/2025 9:51 AM EST Authorizing ProviderResult TypeResult StatusCorey Lena DOCLINISYNCFinal Result Performing OrganizationAddressCity/State/ZIP CodePhone Number [facility] * Urine culture (04/15/2025 8:54 AM EDT)Specimen (Source)Anatomical Location / LateralityCollection Method / VolumeCollection TimeReceived TimeUrineUrine specimen obtained by clean catch procedure / Unknown Narrative Authorizing ProviderResult TypeResult StatusCorey [facility] MICROBIOLOGY - GENERAL ORDERABLESFinal ResultPerforming OrganizationAddressCity/State/ZIP Code Phone Number EXTERNAL LAB * (ABNORMAL) RECURRENT VAGINITIS (HTRX) (04/14/2025 4:23 PM EDT)ComponentValue Ref RangeTest MethodAnalysis TimePerformed AtPathologist SignatureATOPOBIUM GTMSJCK82.676(A)19.961 - 24.689 ppm04/16/2025 7:21 AM EDTHealthTrackRx at LabPortATOPOBIUM VAGINAEDetected(A)19.961 - 24.689 ppm04/16/2025 7:21 AM EDT [facility] at LabPortBVAB 2,3 (BACTERIAL VAGINOSIS ASSOCIATED BACTERIA 2, 3); MOBILUNCUS SPP25.076(A)19.961 - 24.689 ppm04/16/2025 7:21 AM EDT [facility] at LabPortBVAB 2,3 (BACTERIAL VAGINOSIS ASSOCIATED BACTERIA 2, 3); MOBILUNCUS SPPDetected(A)19.961 - 24.689 ppm04/16/2025 7:21 AM EDT [facility] at LabPortCANDIDA ALBICANS, PARAPSILOSIS, FLZJUNIOZO055.000 - 30.347 ppm04/16/2025 7:21 AM EDTHealthTrackRx at LabPortCANDIDA ALBICANS, PARAPSILOSIS, TROPICALISNot Mbjwkjvg61.000 - 30.347 ppm04/16/2025 7:21 AM EDT [facility] at LabPortCANDIDA BOPHPBYT495.000 - 31.618 ppm04/16/2025 7:21 AM EDTHealthTrackRx at LabPortCANDIDA GLABRATANot Jsvpihlw00.000 - 31.618 ppm 04/16/2025 7:21 AM EDTHealthTrackRx at LabPortCANDIDA OJOIMN817.000 - 30.873 ppm04/16/2025 7:21 AM EDTHealthTrackRx at LabPortCANDIDA KRUSEINot Detected 23.000 - 30.873 ppm04/16/2025 7:21 AM EDTHealthTrackRx at [facility] AdministrationCHLAMYDIA BIRZCFIEVYT293.000 - 31.586 ppm04/16/2025 7:21 AM EDTHealthTrackRx at [facility] CHLAMYDIA TRACHOMATISNot Zxqyutgs91.000 - 31.586 ppm04/16/2025 7:21 AM EDT [facility] AdministrationGARDNERELLA PEPSHAHSW16.615(A)19.961 - 24.689 ppm 04/16/2025 7:21 AM EDTHealthTrackRx at [facility] Health AdministrationGARDNERELLA VAGINALISDetected(A) 19.961 - 24.689 ppm04/16/2025 7:21 AM EDTHealthTrackRx at [facility] AdministrationMEGASPHAERA (TYPES 1, 2)12.5290(A)19.961 - 24.689 ppm04/16/2025 7:21 AM EDTHealthTrackRx at LabRush Memorial HospitalMEGASPHAERA (TYPES 1, 2)Detected(A)19.961 - 24.689 ppm04/16/2025 7:21 AM EDTHealthTrackRx at [facility] AdministrationNEISSERIA ZWRLKKZGIET901.000 - 32.587 ppm 04/16/2025 7:21 AM EDTHealthTrackRx at [facility] AdministrationNEISSERIA GONORRHOEAENot Vcjdixii26.000 - 32.587 ppm04/16/2025 7:21 AM EDTHealthTrackRx at [facility] TRICHOMONAS RQPMQTOTY418.000 - 31.995 ppm04/16/2025 7:21 AM EDTHealthTrackRx at LabPortTRICHOMONAS VAGINALISNot Trzrjkjc07.000 - 31.995 ppm04/16/2025 7:21 AM EDTHealthTrackRx at LabPortMYCOPLASMA BTIDRHYHUO987.961 - 24.689 ppm 04/16/2025 7:21 AM EDTHealthTrackRx at LabPortMYCOPLASMA GENITALIUMNot Vgvuarlq63.961 - 24.689 ppm04/16/2025 7:21 AM EDTHealthTrackRx at LabPortERMB, C; MEFA22.795(A)23.000 - 27.500 ppm04/16/2025 7:21 AM EDTHealthTrackRx at LabPortERMB, C; MEFADetected(A)23.000 - 27.500 ppm04/16/2025 7:21 AM EDT [facility] at LabPortTET B, TET M25.407(A)23.000 - 27.500 ppm04/16/2025 7:21 AM EDTHealthTrackRx at LabRush Memorial HospitalTET B, TET MDetected(A)23.000 - 27.500 ppm 04/16/2025 7:21 AM EDTHealthTrackRx at [facility] Health AdministrationSpecimen (Source)Anatomical Location / LateralityCollection Method / VolumeCollection TimeReceived Time Eianjn0804/14/2025 4:23 PM EDT1 2:19 AM EDT Narrative Authorizing ProviderResult TypeResult StatusCorey Lena DOLAB BLOOD ORDERABLES Final ResultPerforming OrganizationAddressCity/State/ZIP CodePhone Number [facility] [address] [address] * US OB limited 1+ fetuses (04/14/2025 [...] Brody MD Authorizing ProviderResult TypeResult StatusCorey Lena [facility] PROCEDURES Final Result from Last 3 Months Insurance
[2025-05-21 10:36] LABS: Glucose 1 Hour 152 mg/dL (<180)
[2025-05-21 11:44] LABS: Glucose 2 Hour 92 mg/dL (<155)
[2025-05-21 12:52] LABS: Glucose 3 Hour 120 mg/dL (<140)
== END 2025-05-21 09:06 | disposition home or self-care (01) ==
LOC: LAB 09:07
PROVIDERS: PCP Family Medicine; Visit Provider Obstetrics & Gynecology
DX: R73.09 Other abnormal glucose (principal)
CPT/HCPCS: 36415; 82951; 82952